=== PATIENT | male | born 1960 | race Hispanic/Latino ===

== ENCOUNTER 2024-10-20 01:02 | Emergency (ER) | payer BC ==
[~2024-10-20] VITALS: Ht 180.3 cm; Wt 86.2 kg
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
[2024-10-20 02:20] VITALS: BP 144/74; PULSE 82; RESP 15; TEMP 97; O2SAT 97
== END 2024-10-20 02:23 ==
LOC: EDH 01:02 → EEVIPCON 01:02 → EDH 02:23
DX: Z02.89 Encounter for other administrative examinations (principal); V89.2XXA Person injured in unspecified motor-vehicle accident, traffic, initial encounter; Y93.89 Activity, other specified; Y92.89 Other specified places as the place of occurrence of the external cause; Y99.8 Other external cause status
CPT/HCPCS: 99281